=== PATIENT | female | born 1950 | race Caucasian/White ===

== ENCOUNTER → 2016-10-25 | Outpatient (CLI) | payer MEDICARE ==
[~2016-10-25] VITALS: Ht 157.5 cm; Wt 78.2 kg
[~2016-10-25] MED LIST: ASPI81CH7 CHEW; BETI0.5S LEFT EYE; CETI10CH CHEW; CHLORHEXIDINE GLUCONATE 2 % 1 PACK (2 CLOTHS) TOPICAL PRN; ENAL5TAB PO; ESTR0.62 VAGINAL; FAMOTIDINE 20 MG/2 ML VIAL ONE; INSULIN HUMAN REGULAR 1,000 UNITS/10 ML VIAL SQ PRN; LACTATED RINGER'S 1000 ML IV PRN; LEVO112T2 PO; LISI40TA PO; METOPROLOL TARTRATE 25 MG TAB PO PRN; OMEP20TA PO; POVIDONE IODINE 5% (ANTISEPSIS KIT) 4 APPLICATIONS EACH NARE PRN; PRAV40TA2 PO; PRED1SUS LEFT EYE; PROPOFOL 200 MG/20 ML AMP IV PUSH ONE; RANI150T PO; SODIUM CHLORID 0.9% 500 ML IV PRN
[2016-10-25 08:21] VITALS: BP 184/84; PULSE 69; RESP 18; TEMP 97.9; O2SAT 96
[2016-10-25 11:10] VITALS: TEMP 97.3
--- NOTE | 2016-10-25 11:13 | PD.PROCEDR ---
GI Procedure REFERRING PHYSICIAN Dr. Knox PROCEDURE PERFORMED EUS with FNA INDICATION FOR PROCEDURE Pancreatic towel mass PROCEDURE: The procedure, risks and benefits were discussed with Ms. Kwong and informed consent was obtained. Anesthesia sedated her with Diprivan. She was placed in the left lateral decubitus position. EUS: The Pentax videoscope was introduced through the oropharynx and advanced to the stomach. FINDINGS: Initially we used the radial scope and then the linear scope we found an almost 3 x 3 cm pancreatic tail Mass. this was mobile and circumscribed no infiltration no lymphadenopathy Isoechoic no vascular invasion Fine-needle aspiration was performed with good samples obtained ESTIMATED BLOOD LOSS: None SPECIMENS REMOVED: Pancreatic tail mass COMPLICATIONS: None IMPRESSION: Pancreatic tail mass PLAN: Await pathology Obtained PET scan Follow up in clinic in 2-3 weeks Nelson Alfonso MD Oct 25, 2016 11:12
[2016-10-25 11:30] VITALS: BP 132/75; PULSE 57; RESP 18; O2SAT 98
--- NOTE | 2016-10-25 14:04 | EKG ---
Date Performed: 10/25/2016 Time Performed: 08:07:12 PTAGE: 66 years EKG: Sinus rhythm MARKED LEFT AXIS DEVIATION NONSPECIFIC T-WAVE ABNORMALITY ABNORMAL ECG NO PREVIOUS TRACING DOCTOR: Maxim Robin Interpretating Date/Time 10/25/2016 13:57:41
== END ==
LOC: HEND 07:37
PROVIDERS: ATTEND Internal Medicine Gastroenterology
DX: D13.6 Benign neoplasm of pancreas (principal); R94.31 Abnormal electrocardiogram [ECG] [EKG]
CPT/HCPCS: 00740; 43242; 88112; 88305; 93005; J7120